=== PATIENT | male | born 1955 | race Caucasian/White ===

== ENCOUNTER 2018-09-04 09:04 | Emergency (ER) | payer MEDICARE, MEDICAID ==
[~2018-09-04] VITALS: Ht 185.4 cm; Wt 122.4 kg
[~2018-09-04 09:04] MED LIST: AMIO200T27 PO; APIX5TAB3 PO; ATOR10TA PO; BECL7.3A INH; CARV-50 PO; DIGO125T97 PO; FURO-150 PO; LISI2.5T2 PO; MAGN200T PO; POTA10TA36 PO
[2018-09-04 09:06] VITALS: BP 150/91
[2018-09-04] MEDS ORDERED: ketorolac tromethamine 15mg/ml inj. IM ONE (10:30)
[2018-09-04] MEDS ORDERED: orphenadrine citrate 60mg/2ml inj. IM ONE (10:30)
[2018-09-04] MEDS ORDERED: CYCL-1 PO (10:33)
[2018-09-04] MEDS ORDERED: ACET-2119 PO (10:33)
--- NOTE | 2018-09-04 10:47 | NUR ---
medication norflex out of stock in pharmacy. Pt and provider aware. Pt has rx for home.
== END 2018-09-04 10:53 | disposition home or self-care (01) ==
LOC: ER 09:05
DX: S39.012A Strain of muscle, fascia and tendon of lower back, initial encounter (principal); I11.0 Hypertensive heart disease with heart failure; I50.9 Heart failure, unspecified; I48.91 Unspecified atrial fibrillation; J44.9 Chronic obstructive pulmonary disease, unspecified; F10.10 Alcohol abuse, uncomplicated; X58.XXXA Exposure to other specified factors, initial encounter; Y93.89 Activity, other specified; Y92.89 Other specified places as the place of occurrence of the external cause; Y99.8 Other external cause status
CPT/HCPCS: 96372; 99283; J1885

== ENCOUNTER 2018-12-12 17:10 | Inpatient (IN) | payer MEDICARE, MEDICAID ==
[~2018-12-12 17:10] MED LIST changes: +CYCL-1 PO
== END 2018-12-31 12:34 | DRG 245 ==
LOC: ER 17:10 → CICU 2S 20:45
PROVIDERS: ADMIT Internal Medicine Critical Care Medicine; ATTEND Internal Medicine Critical Care Medicine
PROC: 5A1955Z Respiratory Ventilation, Greater than 96 Consecutive Hours (ICD-10-PCS; principal; 2018-12-12)
PROC: 0BH17EZ Insertion of Endotracheal Airway into Trachea, Via Natural or Artificial Opening (ICD-10-PCS; 2018-12-12)
PROC: 03HY32Z Insertion of Monitoring Device into Upper Artery, Percutaneous Approach (ICD-10-PCS; 2018-12-12)
PROC: 4A133B1 Monitoring of Arterial Pressure, Peripheral, Percutaneous Approach (ICD-10-PCS; 2018-12-12)
PROC: 4A1 Measurement and Monitoring, Physiological Systems, Monitoring (ICD-10-PCS; 2018-12-12)
PROC: 06HY33Z Insertion of Infusion Device into Lower Vein, Percutaneous Approach (ICD-10-PCS; 2018-12-12)
PROC: B54BZZA Ultrasonography of Right Lower Extremity Veins, Guidance (ICD-10-PCS; 2018-12-12)
PROC: 02HV33Z Insertion of Infusion Device into Superior Vena Cava, Percutaneous Approach (ICD-10-PCS; 2018-12-15)
PROC: B548ZZA Ultrasonography of Superior Vena Cava, Guidance (ICD-10-PCS; 2018-12-15)
PROC: 4A10X4Z Monitoring of Central Nervous Electrical Activity, External Approach (ICD-10-PCS; 2018-12-16)
PROC: B2111ZZ Fluoroscopy of Multiple Coronary Arteries using Low Osmolar Contrast (ICD-10-PCS; 2018-12-27)
PROC: B41F1ZZ Fluoroscopy of Right Lower Extremity Arteries using Low Osmolar Contrast (ICD-10-PCS; 2018-12-27)
PROC: B2151ZZ Fluoroscopy of Left Heart using Low Osmolar Contrast (ICD-10-PCS; 2018-12-27)
PROC: 4A023N7 Measurement of Cardiac Sampling and Pressure, Left Heart, Percutaneous Approach (ICD-10-PCS; 2018-12-27)
PROC: 0JH608Z Insertion of Defibrillator Generator into Chest Subcutaneous Tissue and Fascia, Open Approach (ICD-10-PCS; 2018-12-30)
PROC: 0JH60PZ Insertion of Cardiac Rhythm Related Device into Chest Subcutaneous Tissue and Fascia, Open Approach (ICD-10-PCS; 2018-12-30)
DX: I49.01 Ventricular fibrillation (principal); J81.0 Acute pulmonary edema; R57.0 Cardiogenic shock; J96.01 Acute respiratory failure with hypoxia; I50.22 Chronic systolic (congestive) heart failure; G93.40 Encephalopathy, unspecified; J98.11 Atelectasis; N17.9 Acute kidney failure, unspecified; I42.9 Cardiomyopathy, unspecified; Z91.19 Patient's noncompliance with other medical treatment and regimen; F10.10 Alcohol abuse, uncomplicated; Z60.2 Problems related to living alone; I45.10 Unspecified right bundle-branch block; R56.9 Unspecified convulsions; I48.0 Paroxysmal atrial fibrillation; J44.9 Chronic obstructive pulmonary disease, unspecified; I25.10 Atherosclerotic heart disease of native coronary artery without angina pectoris; E66.9 Obesity, unspecified; Z68.31 Body mass index [BMI] 31.0-31.9, adult; Z59.0 Homelessness; Z79.01 Long term (current) use of anticoagulants; Z87.891 Personal history of nicotine dependence; Z79.899 Other long term (current) drug therapy
CPT/HCPCS: 31500; 33249; 36415; 36556; 36600; 70450; 71045; 80048; 80053; 80061; 80076; 80162; 80305; 80320; 81001; 81003; 82150; 82330; 82550; 82553; 82803; 82948; 83605; 83615; 83690; 83735; 83874; 83880; 84100; 84134; 84145; 84439; 84443; 84484; 85018; 85025; 85610; 85730; 87040; 87070; 92508; 92616; 93005; 93308; 93458; 93926; 94002; 94003; 94640; 94760; 95816; 96374; 96375; 97110; 97116; 97161; 97530; 99152; 99153; 99291; A4565; A4620; A6257; A6449; C1760; C1769; C9113; G0378; J0131; J0153; J0171; J0282; J0690; J0692; J0780; J1160; J1250; J1644; J1650; J1940; J1953; J1956; J2001; J2020; J2060; J2250; J2704; J2765; J2930; J2997; J3010; J3411; J3480; J3490; J7030; J7060; Q9967

== ENCOUNTER 2019-07-28 14:39 | Inpatient (IN) | payer MEDICARE, MEDICAID ==
[~2019-07-28] VITALS: Ht 182.9 cm; Wt 115.1 kg
--- NOTE | 2019-07-28 14:54 | NUR ---
[employer] PACEMAKER INTERROGATION HAS BEEN INITIATED. AWAITING A CALL BACK FROM [employer] FOR AN ETA.
[2019-07-28] MEDS ORDERED: diltiazem 5mg/ml 5ml inj. IV ONE ×2 (14:55→15:30)
--- NOTE | 2019-07-28 14:55 | NUR ---
PT STATES HE HASNT TAKEN HIS MEDICATIONS IN THE LAST WEEK BECAUSE HIS FRIEND WOUNDNT GET IT FOR HIM.
[2019-07-28 15:10] LABS: BASOPHILS % (AUTO) 0.1 % (0-1); EOSINOPHILS % (AUTO) 0.4 % (0-6); HEMATOCRIT 43.8 % (42.0-52.0); HEMOGLOBIN 14.9 g/dl (14.0-17.9); LYMPHOCYTES # (AUTO) 1.1 X10'3 (1.1-4.8); LYMPHOCYTES % (AUTO) 10.1 % (21-51); MEAN CORPUSCULAR HEMOGLOBIN 31.8 PG (27.0-31.0); MEAN CORPUSCULAR HGB CONC 34.1 g/dL (33.0-36.5); MEAN CORPUSCULAR VOLUME 93.3 FL (78-98); MEAN PLATELET VOLUME 9.5 FL (7.4-10.4); MONOCYTES % (AUTO) 9.1 % (2-12); NEUTROPHILS % (AUTO) 80.3 % (42-75); PLATELET COUNT 197 X10'3 (140-440); RED BLOOD COUNT 4.69 X10'6 (4.70-6.10); RED CELL DISTRIBUTION WIDTH 14.6 % (11.5-14.5); WHITE BLOOD COUNT 11.2 X10'3 (4.5-11.0)
[2019-07-28 15:26] LABS: ALANINE AMINOTRANSFERASE 41 U/L (12-78); ALBUMIN 3.7 G/DL (3.4-5.0); ALBUMIN/GLOBULIN RATIO 1.1 (1.1-1.5); ALKALINE PHOSPHATASE 104 IU/L (46-116); ANION GAP 9 (8-16); ASPARTATE AMINO TRANSFERASE 40 U/L (10-37); BILIRUBIN,TOTAL 0.7 MG/DL (0.1-1.0); BLOOD UREA NITROGEN 8 MG/DL (7-18); BUN/CREATININE RATIO 7.9 (5.4-32.0); CALCIUM 8.9 MG/DL (8.5-10.1); CHLORIDE 101 MMOL/L (99-107); CREATININE 1.01 MG/DL (0.60-1.10); GLUCOSE 90 MG/DL (70-104); POTASSIUM 4.2 MMOL/L (3.5-5.1); SODIUM 138 MMOL/L (135-145); TOTAL CARBON DIOXIDE 28.1 MMOL/L (24-32); TOTAL PROTEIN 7.1 G/DL (6.4-8.2); eGFR 74 ML/MIN
[2019-07-28] MEDS ORDERED: ATOR20TA66 PO (15:28)
[2019-07-28] MEDS ORDERED: CITA20TA27 PO (15:28)
[2019-07-28] MEDS ORDERED: LISI-604 PO (15:28)
[2019-07-28] MEDS ORDERED: FLUT100D PO (15:31)
[2019-07-28] MEDS ORDERED: RIVA20TA PO (15:31)
[2019-07-28] MEDS ORDERED: FOLI0.8T PO (15:31)
[2019-07-28] MEDS ORDERED: LAN0.125T PO (15:31)
[2019-07-28] MEDS ORDERED: CARV3.1244 PO (15:33)
[2019-07-28] MEDS ORDERED: AMIO100T4 PO (15:33)
[2019-07-28] MEDS ORDERED: FURO20TA4 PO (15:33)
[2019-07-28 15:34] LABS: MAGNESIUM 1.7 MG/DL (1.5-2.4)
[2019-07-28] MEDS ORDERED: ALBU18HF2 INH (15:35)
[2019-07-28 15:38] LABS: URINE AMPHETAMINE SCREEN NEGATIVE (Neg); URINE BARBITUATE SCREEN NEGATIVE (Neg); URINE BENZODIAZEPINES SCREEN NEGATIVE (Neg); URINE CANNABINOID SCREEN NEGATIVE (Neg); URINE COCAINE SCREEN NEGATIVE (Neg); URINE METHADONE SCREEN NEGATIVE (Neg); URINE OPIATE SCREEN POSITIVE (Neg); URINE PHENCYCLIDINE SCREEN NEGATIVE (Neg)
[2019-07-28 15:55] LABS: ETHANOL < 0.010 GM/DL (0.0-0.010)
[2019-07-28] MEDS ORDERED: magnesium 4gm in 100ml NS 100 ML IV PRN (17:20)
[2019-07-28] MEDS ORDERED: potassium Cl 20 mEq SR tablet PO PRN ×2 (17:20)
[2019-07-28] MEDS ORDERED: ipratropium/albuterol 3ml nebule NEB PRN (17:20)
[2019-07-28] MEDS ORDERED: ondansetron/PF 4mg/2ml inj IV PRN (17:20)
[2019-07-28] MEDS ORDERED: magnesium 2GM in 50ml NS 50 ML IV PRN (17:20)
[2019-07-28] MEDS ORDERED: thiamine inj. 100 MG in normal saline 100ml IV soln 100 ML IV ONE (17:20)
[2019-07-28] MEDS ORDERED: potassium CL 10mEq/100ml bag 100 ML IV PRN ×2 (17:20)
[2019-07-28] MEDS ORDERED: LORazepam 2 mg/ml vial IV PRN ×2 (17:20)
[2019-07-28] MEDS ORDERED: haloperidol lactate 5mg/ml inj IM PRN (17:20)
[2019-07-28] MEDS: nicotine 21mg patch - 24 hr TD SCH (18:07)
[2019-07-28] MEDS: rivaroxaban 20mg tablet PO SCH (18:09)
[2019-07-28] MEDS: amiodarone 100mg tablet PO SCH (18:09)
[2019-07-28] MEDS: digoxin 125mcg (0.125mg) tablet PO SCH (18:09)
[2019-07-28] MEDS ORDERED: FLU VACC QS2019-20 36MOS UP/PF 60 MCG/0.5 ML SYRINGE IMVAC ONE (18:25)
--- NOTE | 2019-07-28 18:45 | NUR ---
Patient in room MED 317. I have received report from Jayson LOZADA and had the opportunity to ask questions and assume patient care.
[2019-07-28 19:00] VITALS: BP 129/76
[2019-07-28] MEDS: K and/or MAG REPLACEMENT MC SCH (20:00)
--- NOTE | 2019-07-28 20:00 | NUR ---
Pt says his left chest feels bruised where his internal defib is located, he thinks because it shocked him 7 times today Addendum: 07/29/19 at 0503 by Ngozi Farley RN Amended: Links added.
[2019-07-28 22:00] VITALS: BP 136/88
[2019-07-28] MEDS: docusate sod 100mg capsule PO SCH (22:03)
[2019-07-28] MEDS: atorvastatin 20mg tablet PO SCH (22:03)
[2019-07-28] MEDS: carVEDilol 3.125mg tablet PO SCH (22:03)
[2019-07-28] MEDS: acetaminophen 325mg tablet PO PRN (22:05)
--- NOTE | 2019-07-28 23:04 | NUR ---
PAGER ID: [phone] MESSAGE: [phone] pt Luís currently AFIB RVR in the 160s, just had 5 beat run of VTACH. Had two Cardizem pushes in the ER and PO Digoxin. Has PO Amio 100 mg/day and PO Digoxin 125 mcg/day scheduled for tomorrow. Please advise - ACCE [id number]
[2019-07-28] MEDS: diltiazem 5mg/ml 5ml inj. IV PRN (23:32)
--- NOTE | 2019-07-29 00:45 | NUR ---
CHECKING PTS GLUCOSE LEVELS DUE TO HIM STATING HE DRINKS EVERYDAY. CHECKED PTS BS AT 2200 AND IT WAS 91, CHECKED IT AGAIN AT 0030 AND IT WAS 109.
[2019-07-29 02:00] VITALS: BP 122/83
[2019-07-29 04:05] LABS: BASOPHILS # (AUTO) 0.1 X10'3 (0-0.2); BASOPHILS % (AUTO) 1.5 % (0-1); EOSINOPHILS # (AUTO) 0.3 X10'3 (0-0.9); EOSINOPHILS % (AUTO) 3.1 % (0-6); HEMATOCRIT 39.1 % (42.0-52.0); HEMOGLOBIN 13.4 g/dl (14.0-17.9); LYMPHOCYTES % (AUTO) 23.7 % (21-51); MEAN CORPUSCULAR HEMOGLOBIN 32.1 PG (27.0-31.0); MEAN CORPUSCULAR HGB CONC 34.3 g/dL (33.0-36.5); MEAN CORPUSCULAR VOLUME 93.7 FL (78-98); MEAN PLATELET VOLUME 9.6 FL (7.4-10.4); MONOCYTES # (AUTO) 0.9 X10'3 (0-0.9); MONOCYTES % (AUTO) 10.8 % (2-12); NEUTROPHILS # (AUTO) 5.1 X10'3 (1.8-7.7); NEUTROPHILS % (AUTO) 60.9 % (42-75); PLATELET COUNT 172 X10'3 (140-440); RED BLOOD COUNT 4.17 X10'6 (4.70-6.10); RED CELL DISTRIBUTION WIDTH 14.8 % (11.5-14.5); WHITE BLOOD COUNT 8.4 X10'3 (4.5-11.0)
[2019-07-29 04:20] LABS: ALANINE AMINOTRANSFERASE 33 U/L (12-78); ALKALINE PHOSPHATASE 93 IU/L (46-116); AMYLASE 45 U/L (25-115); ANION GAP 6 (8-16); ASPARTATE AMINO TRANSFERASE 31 U/L (10-37); BILIRUBIN,TOTAL 0.6 MG/DL (0.1-1.0); BLOOD UREA NITROGEN 11 MG/DL (7-18); BUN/CREATININE RATIO 12.2 (5.4-32.0); CALCIUM 8.7 MG/DL (8.5-10.1); CHLORIDE 104 MMOL/L (99-107); CHOLESTEROL 102 MG/DL (0-200); GLUCOSE 103 MG/DL (70-104); HDL CHOLESTEROL 50 MG/DL (35-60); LDL CHOLESTEROL 39 MG/DL (50-100); PHOSPHORUS 3.9 MG/DL (2.3-4.5); POTASSIUM 3.6 MMOL/L (3.5-5.1); SODIUM 139 MMOL/L (135-145); TOTAL CARBON DIOXIDE 29.5 MMOL/L (24-32); TRIGLYCERIDES 79 MG/DL (20-135); eGFR 85 ML/MIN
[2019-07-29 04:21] LABS: LIPASE 108 U/L (73-393)
--- NOTE | 2019-07-29 06:00 | NUR ---
Problems reprioritized. Patient report given, questions answered & plan of care reviewed with PAT RN.
[2019-07-29 07:00] VITALS: BP 121/85
[2019-07-29] MEDS: docusate sod 100mg capsule PO SCH ×2 (07:56→22:13)
[2019-07-29] MEDS: lisinopril 5mg tablet PO SCH (07:57)
[2019-07-29] MEDS: citalopram 20mg tablet PO SCH (07:58)
[2019-07-29] MEDS: carVEDilol 3.125mg tablet PO SCH ×2 (07:59→22:13)
[2019-07-29] MEDS: K and/or MAG REPLACEMENT MC SCH ×2 (08:00→20:00)
[2019-07-29] MEDS: furosemide 20MG tablet PO SCH (08:00)
[2019-07-29] MEDS: folic acid 1mg tablet PO SCH (08:00)
[2019-07-29] MEDS: rivaroxaban 20mg tablet PO SCH (08:00)
[2019-07-29] MEDS: digoxin 125mcg (0.125mg) tablet PO SCH (08:01)
[2019-07-29] MEDS: thiamine inj. 100 MG, folic acid inj. 2 MG in normal saline 100ml IV soln 100.0 ML IV SCH (08:03)
[2019-07-29] MEDS: nicotine 21mg patch - 24 hr TD SCH (08:06)
[2019-07-29] MEDS ORDERED: pneumococcal 23-VAL P-sac vacc 25 mcg/0.5ml vial IMVAC ONE (10:00)
[2019-07-29] MEDS: amiodarone 100mg tablet PO SCH (10:13)
[2019-07-29 11:00] VITALS: BP 127/81
[2019-07-29 15:00] VITALS: BP 127/87
[2019-07-29] MEDS: MVI, adult No.4 with vit. K 10 ML in dextrose 5% water 500ml 500 ML IV SCH ×2 (15:48)
[2019-07-29 18:00] VITALS: BP 139/92
--- NOTE | 2019-07-29 18:00 | NUR ---
Patient in room MED 317. I have received report from ROLAND LOZADA and had the opportunity to ask questions and assume patient care.
[2019-07-29 22:00] VITALS: BP 119/65
--- NOTE | 2019-07-29 22:10 | NUR ---
Pts glucose was 96
[2019-07-29] MEDS: atorvastatin 20mg tablet PO SCH (22:13)
[2019-07-29] MEDS: acetaminophen 325mg tablet PO PRN (22:22)
--- NOTE | 2019-07-29 23:11 | NUR ---
Talked to Preet about pts occasional HR of up to 140 and she asked what the HR was right then, that if it was 140 right then she would treat it, but it was 102 so there were no new orders given. She also deferred the possible chemosis or scleredema to day doc, but she did place an order of a one time dose for ultram 50 mg PO for pts 8/10 chronic back pain and right leg ache.
[2019-07-29] MEDS ORDERED: traMADol 50MG tablet PO PRN (23:20)
[2019-07-30 02:00] VITALS: BP 103/79
[2019-07-30 05:35] LABS: BASOPHILS # (AUTO) 0.1 X10'3 (0-0.2); BASOPHILS % (AUTO) 0.8 % (0-1); EOSINOPHILS # (AUTO) 0.4 X10'3 (0-0.9); EOSINOPHILS % (AUTO) 4.7 % (0-6); HEMATOCRIT 41.4 % (42.0-52.0); HEMOGLOBIN 13.9 g/dl (14.0-17.9); LYMPHOCYTES # (AUTO) 1.6 X10'3 (1.1-4.8); MEAN CORPUSCULAR HEMOGLOBIN 32.1 PG (27.0-31.0); MEAN CORPUSCULAR HGB CONC 33.5 g/dL (33.0-36.5); MEAN CORPUSCULAR VOLUME 95.6 FL (78-98); MEAN PLATELET VOLUME 9.6 FL (7.4-10.4); MONOCYTES # (AUTO) 0.7 X10'3 (0-0.9); MONOCYTES % (AUTO) 7.9 % (2-12); NEUTROPHILS # (AUTO) 5.8 X10'3 (1.8-7.7); NEUTROPHILS % (AUTO) 67.6 % (42-75); PLATELET COUNT 153 X10'3 (140-440); RED BLOOD COUNT 4.33 X10'6 (4.70-6.10); RED CELL DISTRIBUTION WIDTH 14.7 % (11.5-14.5); WHITE BLOOD COUNT 8.6 X10'3 (4.5-11.0)
[2019-07-30 05:51] LABS: ALANINE AMINOTRANSFERASE 30 U/L (12-78); ALBUMIN 3.1 G/DL (3.4-5.0); ALKALINE PHOSPHATASE 90 IU/L (46-116); AMYLASE 52 U/L (25-115); ANION GAP 6 (8-16); ASPARTATE AMINO TRANSFERASE 25 U/L (10-37); BILIRUBIN,TOTAL 0.6 MG/DL (0.1-1.0); BLOOD UREA NITROGEN 10 MG/DL (7-18); BUN/CREATININE RATIO 11.4 (5.4-32.0); CALCIUM 8.7 MG/DL (8.5-10.1); CHLORIDE 105 MMOL/L (99-107); CREATININE 0.88 MG/DL (0.60-1.10); GLUCOSE 96 MG/DL (70-104); LIPASE 108 U/L (73-393); MAGNESIUM 1.9 MG/DL (1.5-2.4); PHOSPHORUS 3.7 MG/DL (2.3-4.5); POTASSIUM 3.6 MMOL/L (3.5-5.1); SODIUM 141 MMOL/L (135-145); TOTAL CARBON DIOXIDE 30.3 MMOL/L (24-32); TOTAL PROTEIN 6.2 G/DL (6.4-8.2); eGFR 87 ML/MIN
--- NOTE | 2019-07-30 06:28 | NUR ---
Problems reprioritized. Patient report given, questions answered & plan of care reviewed with Angie LOZADA.
[2019-07-30 06:30] VITALS: BP 133/91
--- NOTE | 2019-07-30 06:45 | NUR ---
Patient in room MED 317. I have received report from Martha LOZADA and had the opportunity to ask questions and assume patient care. Addendum: 07/30/19 at 1829 by Angie Arana RN CORRECTION--REPORTED OFF TO ROBIN LOZADA, not Martha LOZADA.
[2019-07-30] MEDS: K and/or MAG REPLACEMENT MC SCH ×2 (08:00→20:00)
[2019-07-30] MEDS: rivaroxaban 20mg tablet PO SCH (08:33)
[2019-07-30] MEDS: folic acid 1mg tablet PO SCH (08:33)
[2019-07-30] MEDS: docusate sod 100mg capsule PO SCH ×2 (08:33→19:55)
[2019-07-30] MEDS: nicotine 21mg patch - 24 hr TD SCH (08:33)
[2019-07-30] MEDS: carVEDilol 3.125mg tablet PO SCH ×2 (08:33→19:56)
[2019-07-30] MEDS: lisinopril 5mg tablet PO SCH (08:33)
[2019-07-30] MEDS: digoxin 125mcg (0.125mg) tablet PO SCH (08:34)
[2019-07-30] MEDS: furosemide 20MG tablet PO SCH (08:34)
[2019-07-30] MEDS: citalopram 20mg tablet PO SCH (08:35)
[2019-07-30] MEDS: amiodarone 100mg tablet PO SCH (08:35)
[2019-07-30] MEDS: thiamine inj. 100 MG, folic acid inj. 2 MG in normal saline 100ml IV soln 100.0 ML IV SCH (08:35)
[2019-07-30] MEDS: MVI, adult No.4 with vit. K 10 ML in dextrose 5% water 500ml 500 ML IV SCH ×2 (08:45)
[2019-07-30 11:30] VITALS: BP 135/94
[2019-07-30 15:00] VITALS: BP 97/74
[2019-07-30 18:00] VITALS: BP 136/97
--- NOTE | 2019-07-30 18:00 | NUR ---
Patient in room MED 317. I have received report from MARGARETTE LOZADA and had the opportunity to ask questions and assume patient care.
--- NOTE | 2019-07-30 18:29 | NUR ---
Problems reprioritized. Patient report given, questions answered & plan of care reviewed with ROBIN LOZADA. Addendum: 07/30/19 at 1830 by Angie Arana RN CORRECTION- REPORTED OFF TO CARROLL LOZADA not ROBIN LOZADA.
[2019-07-30] MEDS ORDERED: amiodarone 200mg tablet PO ONE (19:35)
--- NOTE | 2019-07-30 19:36 | NUR ---
Called Katty regarding pts HR up to 170s, he ordered 100 mg amiodarone PO one time give.
[2019-07-30] MEDS: acetaminophen 325mg tablet PO PRN (19:54)
[2019-07-30] MEDS: atorvastatin 20mg tablet PO SCH (19:55)
[2019-07-30 22:00] VITALS: BP 130/88
[2019-07-31] VITALS (7 sets, daily range): BP systolic 105–140; BP diastolic 75–98
--- NOTE | 2019-07-31 | NUR ---
SPOKE TO ARTI ABOUT PTS CHRONIC BACK PAIN THAT HE RATES AN 8/10 AND ARTI ORDERED "NORCO 5 1 Q4"
[2019-07-31] MEDS: HYDROcodone/acetaminophen 5mg/325mg tablet PO PRN (02:47)
--- NOTE | 2019-07-31 06:00 | NUR ---
Problems reprioritized. Patient report given, questions answered & plan of care reviewed with Angie LOZADA.
--- NOTE | 2019-07-31 06:15 | NUR ---
Patient in room MED 317. I have received report from Martha LOZADA and had the opportunity to ask questions and assume patient care.
[2019-07-31 06:21] LABS: ANION GAP 6 (8-16); BILIRUBIN,TOTAL 0.5 MG/DL (0.1-1.0); BLOOD UREA NITROGEN 11 MG/DL (7-18); CALCIUM 8.6 MG/DL (8.5-10.1); CHLORIDE 105 MMOL/L (99-107); CREATININE 0.92 MG/DL (0.60-1.10); GLUCOSE 125 MG/DL (70-104); MAGNESIUM 1.9 MG/DL (1.5-2.4); PHOSPHORUS 3.2 MG/DL (2.3-4.5); POTASSIUM 3.5 MMOL/L (3.5-5.1); SODIUM 142 MMOL/L (135-145); TOTAL CARBON DIOXIDE 31.3 MMOL/L (24-32); TOTAL PROTEIN 6.3 G/DL (6.4-8.2); eGFR 83 ML/MIN
[2019-07-31 06:22] LABS: ALANINE AMINOTRANSFERASE 28 U/L (12-78); ALBUMIN/GLOBULIN RATIO 0.9 (1.1-1.5); ALKALINE PHOSPHATASE 88 IU/L (46-116); AMYLASE 54 U/L (25-115); ASPARTATE AMINO TRANSFERASE 20 U/L (10-37); LIPASE 112 U/L (73-393)
[2019-07-31 06:26] LABS: BASOPHILS % (AUTO) 0.4 % (0-1); EOSINOPHILS # (AUTO) 0.4 X10'3 (0-0.9); EOSINOPHILS % (AUTO) 4.6 % (0-6); HEMOGLOBIN 14.2 g/dl (14.0-17.9); LYMPHOCYTES # (AUTO) 2.1 X10'3 (1.1-4.8); LYMPHOCYTES % (AUTO) 22.1 % (21-51); MEAN CORPUSCULAR HGB CONC 33.7 g/dL (33.0-36.5); MEAN PLATELET VOLUME 9.8 FL (7.4-10.4); MONOCYTES # (AUTO) 0.8 X10'3 (0-0.9); MONOCYTES % (AUTO) 8.8 % (2-12); NEUTROPHILS % (AUTO) 64.1 % (42-75); PLATELET COUNT 160 X10'3 (140-440); RED BLOOD COUNT 4.42 X10'6 (4.70-6.10); WHITE BLOOD COUNT 9.3 X10'3 (4.5-11.0)
--- NOTE | 2019-07-31 07:51 | NUR ---
PT. TACHYCARDIC WITH AFIB NURSING AWARE. Addendum: 07/31/19 at 0752 by Elan Gleason RT Amended: Links added.
[2019-07-31] MEDS: K and/or MAG REPLACEMENT MC SCH ×2 (08:00→19:23)
[2019-07-31] MEDS: thiamine 100mg tablet PO SCH ×2 (08:07→19:24)
[2019-07-31] MEDS: folic acid 1mg tablet PO SCH (08:07)
[2019-07-31] MEDS: citalopram 20mg tablet PO SCH (08:07)
[2019-07-31] MEDS: carVEDilol 3.125mg tablet PO SCH ×2 (08:07→19:24)
[2019-07-31] MEDS: rivaroxaban 20mg tablet PO SCH (08:08)
[2019-07-31] MEDS: lisinopril 5mg tablet PO SCH (08:08)
[2019-07-31] MEDS: furosemide 20MG tablet PO SCH (08:08)
[2019-07-31] MEDS: docusate sod 100mg capsule PO SCH ×2 (08:08→19:24)
[2019-07-31] MEDS: MVI, adult No.4 with vit. K 10 ML in dextrose 5% water 500ml 500 ML IV SCH ×2 (08:08)
[2019-07-31] MEDS: digoxin 125mcg (0.125mg) tablet PO SCH (08:08)
[2019-07-31] MEDS: amiodarone 100mg tablet PO SCH (08:08)
[2019-07-31] MEDS: nicotine 21mg patch - 24 hr TD SCH (08:09)
[2019-07-31] MEDS: acetaminophen 325mg tablet PO PRN ×2 (13:17→19:24)
--- NOTE | 2019-07-31 18:25 | NUR ---
Problems reprioritized. Patient report given, questions answered & plan of care reviewed with Guilherme LOZADA.
[2019-07-31] MEDS: atorvastatin 20mg tablet PO SCH (20:18)
[2019-08-01 02:30] VITALS: BP 128/84
[2019-08-01 02:56] LABS: BASOPHILS # (AUTO) 0.1 X10'3 (0-0.2); EOSINOPHILS # (AUTO) 0.4 X10'3 (0-0.9); EOSINOPHILS % (AUTO) 4.8 % (0-6); MEAN CORPUSCULAR HEMOGLOBIN 32.5 PG (27.0-31.0); PLATELET COUNT 156 X10'3 (140-440)
[2019-08-01 02:58] LABS: BASOPHILS % (AUTO) 1.8 % (0-1); HEMATOCRIT 42.5 % (42.0-52.0); HEMOGLOBIN 14.5 g/dl (14.0-17.9); LYMPHOCYTES # (AUTO) 2.5 X10'3 (1.1-4.8); LYMPHOCYTES % (AUTO) 29.7 % (21-51); MEAN CORPUSCULAR HGB CONC 34.2 g/dL (33.0-36.5); MEAN CORPUSCULAR VOLUME 95.1 FL (78-98); MEAN PLATELET VOLUME 9.5 FL (7.4-10.4); MONOCYTES # (AUTO) 0.8 X10'3 (0-0.9); MONOCYTES % (AUTO) 9.8 % (2-12); NEUTROPHILS # (AUTO) 4.5 X10'3 (1.8-7.7); NEUTROPHILS % (AUTO) 53.9 % (42-75); RED BLOOD COUNT 4.47 X10'6 (4.70-6.10); RED CELL DISTRIBUTION WIDTH 14.9 % (11.5-14.5); WHITE BLOOD COUNT 8.4 X10'3 (4.5-11.0)
[2019-08-01 03:21] LABS: ANION GAP 4 (8-16); BILIRUBIN,TOTAL 0.5 MG/DL (0.1-1.0); BLOOD UREA NITROGEN 13 MG/DL (7-18); BUN/CREATININE RATIO 13.4 (5.4-32.0); CALCIUM 8.7 MG/DL (8.5-10.1); CHLORIDE 106 MMOL/L (99-107); CREATININE 0.97 MG/DL (0.60-1.10); GLUCOSE 96 MG/DL (70-104); MAGNESIUM 2.1 MG/DL (1.5-2.4); PHOSPHORUS 3.7 MG/DL (2.3-4.5); POTASSIUM 3.8 MMOL/L (3.5-5.1); SODIUM 141 MMOL/L (135-145); TOTAL CARBON DIOXIDE 31.5 MMOL/L (24-32); eGFR 78 ML/MIN
[2019-08-01 03:22] LABS: ALANINE AMINOTRANSFERASE 30 U/L (12-78); ALBUMIN 3.2 G/DL (3.4-5.0); ALKALINE PHOSPHATASE 91 IU/L (46-116); AMYLASE 57 U/L (25-115); ASPARTATE AMINO TRANSFERASE 18 U/L (10-37); LIPASE 117 U/L (73-393); TOTAL PROTEIN 6.5 G/DL (6.4-8.2)
[2019-08-01 06:00] VITALS: BP 120/92
--- NOTE | 2019-08-01 06:18 | NUR ---
Problems reprioritized. Patient report given, questions answered & plan of care reviewed with Josh Carias. no distress noted.
[2019-08-01] MEDS: K and/or MAG REPLACEMENT MC SCH ×2 (08:00→20:00)
[2019-08-01] MEDS: diltiazem 5mg/ml 5ml inj. IV PRN (08:12)
[2019-08-01] MEDS: rivaroxaban 20mg tablet PO SCH (08:27)
[2019-08-01] MEDS: digoxin 125mcg (0.125mg) tablet PO SCH (08:27)
[2019-08-01] MEDS: citalopram 20mg tablet PO SCH (08:27)
[2019-08-01] MEDS: amiodarone 100mg tablet PO SCH (08:27)
[2019-08-01] MEDS: lisinopril 5mg tablet PO SCH (08:27)
[2019-08-01] MEDS: docusate sod 100mg capsule PO SCH ×2 (08:27→21:05)
[2019-08-01] MEDS: MVI, adult No.4 with vit. K 10 ML in dextrose 5% water 500ml 500 ML IV SCH ×2 (08:27)
[2019-08-01] MEDS: folic acid 1mg tablet PO SCH (08:27)
[2019-08-01] MEDS: thiamine 100mg tablet PO SCH ×2 (08:27→21:05)
[2019-08-01] MEDS: nicotine 21mg patch - 24 hr TD SCH (08:29)
[2019-08-01] MEDS: carVEDilol 3.125mg tablet PO SCH ×2 (08:29→21:05)
[2019-08-01] MEDS: furosemide 20MG tablet PO SCH (08:29)
[2019-08-01] MEDS: HYDROcodone/acetaminophen 5mg/325mg tablet PO PRN ×2 (08:29→16:04)
[2019-08-01 11:00] VITALS: BP 125/71
[2019-08-01] MEDS ORDERED: carVEDilol 3.125mg tablet PO ONE (12:00)
--- NOTE | 2019-08-01 12:10 | NUR ---
Patient in room MED 317. I have received report from NEVILLE Moreno and had the opportunity to ask questions and assume patient care.
--- NOTE | 2019-08-01 13:07 | NUR ---
Initial: Pt admit w/ afib RVR, type 2 TN, hx medical noncompliance per MD note. PO 100% heart healthy diet meeting needs. LBM 07/31 receiving colace. No nutrition concerns at this time. Will continue to monitor. Rec: 1. continue heart healthy diet 2. routine bowel care 3. wt per rx Addendum: 08/01/19 at [address] Amended: Links added.
[2019-08-01 15:00] VITALS: BP 124/87
--- NOTE | 2019-08-01 18:20 | NUR ---
Problems reprioritized. Patient report given, questions answered & plan of care reviewed with NEVILLE Vanegas.
[2019-08-01 18:53] VITALS: BP 143/92
[2019-08-01] MEDS: atorvastatin 20mg tablet PO SCH (21:05)
[2019-08-01] MEDS: amiodarone 200mg tablet PO SCH (21:06)
[2019-08-01 22:00] VITALS: BP 129/91
[2019-08-02 02:15] VITALS: BP 128/86
[2019-08-02 02:40] LABS: BASOPHILS # (AUTO) 0.1 X10'3 (0-0.2); BASOPHILS % (AUTO) 1.2 % (0-1); CHLORIDE 106 MMOL/L (99-107); EOSINOPHILS # (AUTO) 0.4 X10'3 (0-0.9); EOSINOPHILS % (AUTO) 4.4 % (0-6); GLUCOSE 91 MG/DL (70-104); HEMATOCRIT 43.3 % (42.0-52.0); HEMOGLOBIN 14.6 g/dl (14.0-17.9); LYMPHOCYTES # (AUTO) 2.4 X10'3 (1.1-4.8); LYMPHOCYTES % (AUTO) 25.4 % (21-51); MEAN CORPUSCULAR HEMOGLOBIN 31.8 PG (27.0-31.0); MEAN CORPUSCULAR HGB CONC 33.7 g/dL (33.0-36.5); MEAN CORPUSCULAR VOLUME 94.5 FL (78-98); MEAN PLATELET VOLUME 9.9 FL (7.4-10.4); MONOCYTES # (AUTO) 0.9 X10'3 (0-0.9); MONOCYTES % (AUTO) 9.4 % (2-12); NEUTROPHILS # (AUTO) 5.7 X10'3 (1.8-7.7); NEUTROPHILS % (AUTO) 59.6 % (42-75); PLATELET COUNT 159 X10'3 (140-440); POTASSIUM 3.9 MMOL/L (3.5-5.1); RED BLOOD COUNT 4.58 X10'6 (4.70-6.10); RED CELL DISTRIBUTION WIDTH 15.1 % (11.5-14.5); SODIUM 141 MMOL/L (135-145); TOTAL CARBON DIOXIDE 31.9 MMOL/L (24-32); WHITE BLOOD COUNT 9.5 X10'3 (4.5-11.0)
[2019-08-02 02:41] LABS: ALANINE AMINOTRANSFERASE 28 U/L (12-78); ALBUMIN 3.3 G/DL (3.4-5.0); ALKALINE PHOSPHATASE 86 IU/L (46-116); AMYLASE 57 U/L (25-115); ANION GAP 3 (8-16); ASPARTATE AMINO TRANSFERASE 19 U/L (10-37); BILIRUBIN,TOTAL 0.5 MG/DL (0.1-1.0); BLOOD UREA NITROGEN 13 MG/DL (7-18); BUN/CREATININE RATIO 12.4 (5.4-32.0); CALCIUM 8.9 MG/DL (8.5-10.1); CREATININE 1.05 MG/DL (0.60-1.10); LIPASE 99 U/L (73-393); MAGNESIUM 2.1 MG/DL (1.5-2.4); PHOSPHORUS 3.7 MG/DL (2.3-4.5); TOTAL PROTEIN 6.5 G/DL (6.4-8.2); eGFR 71 ML/MIN
--- NOTE | 2019-08-02 06:15 | NUR ---
Patient in room MED 313. I have received report from NEVILLE Vanegas and had the opportunity to ask questions and assume patient care.
[2019-08-02 06:22] VITALS: BP 124/74
--- NOTE | 2019-08-02 06:22 | NUR ---
Problems reprioritized. Patient report given, questions answered & plan of care reviewed with Veronika LOZADA.
[2019-08-02] MEDS: MVI, adult No.4 with vit. K 10 ML in dextrose 5% water 500ml 500 ML IV SCH ×2 (07:54)
[2019-08-02] MEDS: thiamine 100mg tablet PO SCH ×2 (07:56→20:47)
[2019-08-02] MEDS: citalopram 20mg tablet PO SCH (07:56)
[2019-08-02] MEDS: digoxin 125mcg (0.125mg) tablet PO SCH (07:57)
[2019-08-02] MEDS: amiodarone 200mg tablet PO SCH ×2 (07:59→20:48)
[2019-08-02] MEDS: docusate sod 100mg capsule PO SCH ×2 (08:00→20:47)
[2019-08-02] MEDS: K and/or MAG REPLACEMENT MC SCH ×2 (08:00→20:00)
[2019-08-02] MEDS: lisinopril 5mg tablet PO SCH (08:02)
[2019-08-02] MEDS: rivaroxaban 20mg tablet PO SCH (08:02)
[2019-08-02] MEDS: nicotine 21mg patch - 24 hr TD SCH (08:03)
[2019-08-02] MEDS: carVEDilol 3.125mg tablet PO SCH ×2 (08:04→20:47)
[2019-08-02] MEDS: furosemide 20MG tablet PO SCH (08:05)
[2019-08-02] MEDS: folic acid 1mg tablet PO SCH (08:05)
[2019-08-02 11:00] VITALS: BP 115/76
[2019-08-02 15:00] VITALS: BP 98/77
[2019-08-02] MEDS: HYDROcodone/acetaminophen 5mg/325mg tablet PO PRN ×2 (16:40→20:57)
[2019-08-02 18:00] VITALS: BP 151/87
--- NOTE | 2019-08-02 18:30 | NUR ---
Problems reprioritized. Patient report given, questions answered & plan of care reviewed with NEVILLE Mead.
--- NOTE | 2019-08-02 18:30 | NUR ---
Patient in room MED 313. I have received report from NEVILLE Hair and had the opportunity to ask questions and assume patient care.
[2019-08-02] MEDS: atorvastatin 20mg tablet PO SCH (20:47)
[2019-08-02 22:00] VITALS: BP 118/85
[2019-08-03] MEDS: HYDROcodone/acetaminophen 5mg/325mg tablet PO PRN (01:41)
[2019-08-03 02:00] VITALS: BP 116/73
[2019-08-03 02:20] LABS: MAGNESIUM 2.2 MG/DL (1.5-2.4)
[2019-08-03 03:07] LABS: BASOPHILS # (AUTO) 0.1 X10'3 (0-0.2); EOSINOPHILS # (AUTO) 0.4 X10'3 (0-0.9); EOSINOPHILS % (AUTO) 4.4 % (0-6); HEMATOCRIT 44.1 % (42.0-52.0); HEMOGLOBIN 14.9 g/dl (14.0-17.9); LYMPHOCYTES # (AUTO) 2.6 X10'3 (1.1-4.8); MEAN CORPUSCULAR HGB CONC 33.8 g/dL (33.0-36.5); MEAN CORPUSCULAR VOLUME 94.5 FL (78-98); MEAN PLATELET VOLUME 10.4 FL (7.4-10.4); MONOCYTES % (AUTO) 11.1 % (2-12); NEUTROPHILS # (AUTO) 4.6 X10'3 (1.8-7.7); NEUTROPHILS % (AUTO) 53.5 % (42-75); PLATELET COUNT 169 X10'3 (140-440); RED BLOOD COUNT 4.67 X10'6 (4.70-6.10); RED CELL DISTRIBUTION WIDTH 14.8 % (11.5-14.5); WHITE BLOOD COUNT 8.6 X10'3 (4.5-11.0)
[2019-08-03 03:16] LABS: ALANINE AMINOTRANSFERASE 32 U/L (12-78); ALBUMIN 3.2 G/DL (3.4-5.0); ALBUMIN/GLOBULIN RATIO 0.9 (1.1-1.5); ALKALINE PHOSPHATASE 93 IU/L (46-116); ANION GAP 8 (8-16); ASPARTATE AMINO TRANSFERASE 21 U/L (10-37); BILIRUBIN,TOTAL 0.4 MG/DL (0.1-1.0); BLOOD UREA NITROGEN 14 MG/DL (7-18); BUN/CREATININE RATIO 13.9 (5.4-32.0); CALCIUM 8.6 MG/DL (8.5-10.1); CHLORIDE 105 MMOL/L (99-107); CREATININE 1.01 MG/DL (0.60-1.10); GLUCOSE 88 MG/DL (70-104); POTASSIUM 4.1 MMOL/L (3.5-5.1); SODIUM 142 MMOL/L (135-145); TOTAL CARBON DIOXIDE 28.9 MMOL/L (24-32); TOTAL PROTEIN 6.7 G/DL (6.4-8.2); eGFR 74 ML/MIN
[2019-08-03 06:00] VITALS: BP 110/73
--- NOTE | 2019-08-03 06:00 | NUR ---
Patient in room MED 313. I have received report from NEVILLE Cuevas and had the opportunity to ask questions and assume patient care.
--- NOTE | 2019-08-03 06:31 | NUR ---
Problems reprioritized. Patient report given, questions answered & plan of care reviewed with NEVILLE Wren.
[2019-08-03] MEDS ORDERED: lisinopril 2.5mg tablet PO SCH (07:51)
[2019-08-03] MEDS: carVEDilol 3.125mg tablet PO SCH (09:41)
[2019-08-03] MEDS: folic acid 1mg tablet PO SCH (09:42)
[2019-08-03] MEDS: digoxin 125mcg (0.125mg) tablet PO SCH (09:43)
[2019-08-03] MEDS: furosemide 20MG tablet PO SCH (09:44)
[2019-08-03] MEDS: thiamine 100mg tablet PO SCH (09:45)
[2019-08-03] MEDS: rivaroxaban 20mg tablet PO SCH (09:45)
[2019-08-03] MEDS: citalopram 20mg tablet PO SCH (09:46)
[2019-08-03] MEDS: amiodarone 200mg tablet PO SCH (09:47)
[2019-08-03] MEDS: nicotine 21mg patch - 24 hr TD SCH (09:47)
[2019-08-03] MEDS: docusate sod 100mg capsule PO SCH (09:47)
[2019-08-03 11:00] VITALS: BP 98/79
[2019-08-03] MEDS ORDERED: COR3.125T PO (11:24)
--- NOTE | 2019-08-03 14:30 | NUR ---
RN provided patient teaching on Afib, ETOH and drug rehab, all questions answered. Pt understood that he has to make it his first priority to find a PCP. Pt has difficulty comprehending, teaching took more than 45 min. Pt requested taxi service from the hospital to take him where he resides (renting a room in a house). Pt attempted to call his landlord Luke, but Luke's phone was turned off. Pt left unit with medications and personal belongings at 1430 in wheelchair, picked up by taxi.
[2019-08-04] MEDS ORDERED: multivitamins, therapeutics tablet PO SCH (08:00)
== END 2019-08-03 14:42 | disposition home or self-care (01) | DRG 281 ==
LOC: ER 14:41 → ED HOLD 17:18 → MED 3N 19:00
PROVIDERS: ADMIT Family Medicine; ATTEND Internal Medicine
PROC: 4B02XSZ Measurement of Cardiac Pacemaker, External Approach (ICD-10-PCS; principal; 2019-07-28)
PROC: 3E02340 Introduction of Influenza Vaccine into Muscle, Percutaneous Approach (ICD-10-PCS; 2019-07-28)
PROC: 3E0234Z Introduction of Serum, Toxoid and Vaccine into Muscle, Percutaneous Approach (ICD-10-PCS; 2019-07-29)
DX: I48.91 Unspecified atrial fibrillation (principal); I21.A1 Myocardial infarction type 2; I50.22 Chronic systolic (congestive) heart failure; J44.9 Chronic obstructive pulmonary disease, unspecified; I25.10 Atherosclerotic heart disease of native coronary artery without angina pectoris; K74.60 Unspecified cirrhosis of liver; F17.210 Nicotine dependence, cigarettes, uncomplicated; F10.20 Alcohol dependence, uncomplicated; I11.0 Hypertensive heart disease with heart failure; Z95.5 Presence of coronary angioplasty implant and graft; Z91.19 Patient's noncompliance with other medical treatment and regimen; Z79.899 Other long term (current) drug therapy; Z88.0 Allergy status to penicillin; Z23 Encounter for immunization
CPT/HCPCS: 36415; 71045; 80053; 80061; 80162; 80305; 80320; 82150; 82948; 83690; 83735; 83880; 84100; 84439; 84443; 84484; 85025; 85610; 87081; 90732; 93005; 93306; 94640; 94667; 94668; 94760; 96374; 96376; 97116; 97161; 97530; 99285; G0378; J3411; J3490; J7060; Q2037

== ENCOUNTER 2020-07-04 09:48 | Observation (INO) | payer MEDICARE, MEDICAID ==
[2020-07-03 11:27] LABS: ALBUMIN 3.4 G/DL (3.4-5.0); ANION GAP 7 (8-16); BLOOD UREA NITROGEN 11 MG/DL (7-18); BUN/CREATININE RATIO 11.3 (5.4-32.0); CALCIUM 9.4 MG/DL (8.5-10.1); CHLORIDE 104 MMOL/L (99-107); CREATININE 0.97 MG/DL (0.60-1.10); GLUCOSE 103 MG/DL (70-104); POTASSIUM 4.1 MMOL/L (3.5-5.1); SODIUM 142 MMOL/L (135-145); TOTAL CARBON DIOXIDE 30.7 MMOL/L (24-32); eGFR 78 ML/MIN
[2020-07-03 11:52] LABS: BASOPHILS # (AUTO) 0.1 X10'3 (0-0.2); BASOPHILS % (AUTO) 1.2 % (0-1); EOSINOPHILS # (AUTO) 0.3 X10'3 (0-0.9); EOSINOPHILS % (AUTO) 2.7 % (0-6); HEMATOCRIT 47.5 % (42.0-52.0); HEMOGLOBIN 15.6 g/dl (14.0-17.9); LYMPHOCYTES # (AUTO) 1.7 X10'3 (1.1-4.8); LYMPHOCYTES % (AUTO) 13.8 % (21-51); MEAN CORPUSCULAR HEMOGLOBIN 33.7 PG (27.0-31.0); MEAN CORPUSCULAR HGB CONC 32.8 g/dL (33.0-36.5); MEAN CORPUSCULAR VOLUME 102.6 FL (78-98); MEAN PLATELET VOLUME 10.3 FL (7.4-10.4); MONOCYTES # (AUTO) 1.1 X10'3 (0-0.9); MONOCYTES % (AUTO) 8.9 % (2-12); NEUTROPHILS # (AUTO) 8.8 X10'3 (1.8-7.7); NEUTROPHILS % (AUTO) 73.4 % (42-75); PLATELET COUNT 241 X10'3 (140-440); RED BLOOD COUNT 4.63 X10'6 (4.70-6.10); RED CELL DISTRIBUTION WIDTH 13.6 % (11.5-14.5); WHITE BLOOD COUNT 12.1 X10'3 (4.5-11.0)
[~2020-07-04] VITALS: Ht 182.9 cm; Wt 107.9 kg
[2020-07-04] VITALS (18 sets, daily range): BP systolic 105–169; BP diastolic 65–102
[~2020-07-04 09:48] MED LIST changes: +ALBU18HF2 INH; +AMIO100T4 PO; -AMIO200T27 PO; -APIX5TAB3 PO; -ATOR10TA PO; +ATOR20TA66 PO; -BECL7.3A INH; -CARV-50 PO; +CITA20TA27 PO; +COR3.125T PO; -CYCL-1 PO; -DIGO125T97 PO; +FLUT100D PO; +FOLI0.8T PO; -FURO-150 PO; +FURO20TA4 PO; +LAN0.125T PO; +LISI-604 PO; -LISI2.5T2 PO; -MAGN200T PO; -POTA10TA36 PO; +RIVA20TA PO
[2020-07-04] MEDS ORDERED: LORazepam 0.5 MG tablet PO ONE (10:30)
[2020-07-04] MEDS ORDERED: BUDE10.2 INH (10:30)
[2020-07-04] MEDS ORDERED: MIDAZolam 1mg/ml 10ml vial IV ONE (10:30)
[2020-07-04] MEDS ORDERED: morphine 10mg/ml inj. IV ONE (10:30)
[2020-07-04] MEDS ORDERED: amiodarone 150mg/dext, iso-os 100 ML IV ONE (10:30)
[2020-07-04] MEDS ORDERED: atropine 0.1mg/ml 10ml syringe IV ONE (10:30)
[2020-07-04] MEDS ORDERED: diphenhydrAMINE 25mg capsule PO ONE (10:30)
[2020-07-04] MEDS ORDERED: normal saline 1000ml 1,000 ML IV SCH (10:30)
[2020-07-04] MEDS ORDERED: pneumococcal 23-VAL P-sac vacc 25 mcg/0.5ml vial IMVAC ONE (11:35)
[2020-07-04] MEDS ORDERED: FLU VACC QS2020-21(6MOS UP)/PF 60 MCG/0.5 ML SYRINGE IMVAC ONE (11:35)
[2020-07-04] MEDS ORDERED: albuterol 2.5 MG/3 ML nebule NEB PRN (18:30)
--- NOTE | 2020-07-04 18:45 | NUR ---
Per cardiac short stay RN, normal saline was for cardioversion only and should not be continued on the floor.
--- NOTE | 2020-07-04 19:05 | NUR ---
Orders for ekg and labs in am per dr. garcia. Transferred patient up to room 3018b, in stable condition, Christine LOZADA took over care. Chart taken to christine LOZADA. Patient admit orders placed per dr. garcia TOV orders verified, heart healthy diet, orders for tele monitor. Problems reprioritized. Patient report given, questions answered & plan of care reviewed with Christine LOZADA.
[2020-07-04] MEDS ORDERED: atorvastatin 20mg tablet PO SCH (21:00)
[2020-07-04] MEDS: carvedilol 6.25mg tablet PO SCH (21:14)
[2020-07-05 02:13] VITALS: BP 121/63
[2020-07-05 06:00] VITALS: BP 136/67
[2020-07-05 06:54] LABS: ALANINE AMINOTRANSFERASE 22 U/L (12-78); ALBUMIN 2.8 G/DL (3.4-5.0); ALBUMIN/GLOBULIN RATIO 0.8 (1.1-1.5); ALKALINE PHOSPHATASE 70 IU/L (46-116); ANION GAP 5 (8-16); ASPARTATE AMINO TRANSFERASE 14 U/L (10-37); BILIRUBIN,TOTAL 0.3 MG/DL (0.1-1.0); BLOOD UREA NITROGEN 16 MG/DL (7-18); BUN/CREATININE RATIO 18.2 (5.4-32.0); CALCIUM 8.9 MG/DL (8.5-10.1); CHLORIDE 107 MMOL/L (99-107); CREATININE 0.88 MG/DL (0.60-1.10); GLUCOSE 106 MG/DL (70-104); POTASSIUM 4.5 MMOL/L (3.5-5.1); SODIUM 144 MMOL/L (135-145); TOTAL CARBON DIOXIDE 31.6 MMOL/L (24-32); TOTAL PROTEIN 6.1 G/DL (6.4-8.2); eGFR 87 ML/MIN
[2020-07-05] MEDS ORDERED: digoxin 125mcg (0.125mg) tablet PO SCH (08:00)
[2020-07-05] MEDS ORDERED: citalopram 20mg tablet PO SCH (08:00)
[2020-07-05] MEDS ORDERED: furosemide 20MG tablet PO SCH (08:00)
[2020-07-05] MEDS ORDERED: lisinopril 2.5mg tablet PO SCH (08:00)
[2020-07-05] MEDS ORDERED: rivaroxaban 20mg tablet PO SCH (08:00)
[2020-07-05] MEDS ORDERED: budesonide 0.5mg/2ml UD nebule IH SCH (08:00)
[2020-07-05] MEDS ORDERED: amiodarone 100mg tablet PO SCH (08:00)
[2020-07-05] MEDS: carvedilol 6.25mg tablet PO SCH (08:37)
[2020-07-05 11:00] VITALS: BP 146/74
--- NOTE | 2020-07-05 15:09 | NUR ---
discharged at 1315. PC picked up. Edcuated on follow-up and Beta blockers and when to hold them. PIV taken out. Safe per Dr Arredondo for DC.
== END 2020-07-05 13:30 | disposition home or self-care (01) ==
LOC: SSTAY O 09:48 → PCU 3S 18:42
PROVIDERS: ADMIT Internal Medicine Cardiovascular Disease; ATTEND Internal Medicine Cardiovascular Disease
DX: I48.0 Paroxysmal atrial fibrillation (principal); I42.9 Cardiomyopathy, unspecified; J44.9 Chronic obstructive pulmonary disease, unspecified; E78.5 Hyperlipidemia, unspecified; F10.20 Alcohol dependence, uncomplicated; F17.200 Nicotine dependence, unspecified, uncomplicated; Z71.6 Tobacco abuse counseling; Z95.810 Presence of automatic (implantable) cardiac defibrillator; Z91.19 Patient's noncompliance with other medical treatment and regimen; Z23 Encounter for immunization
CPT/HCPCS: 36415; 80048; 80053; 85025; 87081; 90732; 92960; 93005; 94640; 94760; 94799; 96374; 96375; G0008; G0009; G0378; J0461; J2250; J2270; Q0163; Q2039; J7626

== ENCOUNTER 2021-06-24 11:22 | Outpatient (CLI) | payer MEDICARE, MEDICAID ==
[~2021-06-24 11:22] MED LIST changes: +BUDE10.2 INH; +CARV-50 PO; -COR3.125T PO; -FLUT100D PO; -FOLI0.8T PO; -LAN0.125T PO; -LISI-604 PO; +LISI-642 PO
== END 2021-06-24 23:59 | disposition home or self-care (01) ==
LOC: CARD DIAG 11:22
DX: I34.0 Nonrheumatic mitral (valve) insufficiency (principal); I50.22 Chronic systolic (congestive) heart failure
CPT/HCPCS: 93306

== ENCOUNTER 2022-01-07 13:44 | Inpatient (IN) | payer MEDICARE, MEDICAID ==
[~2022-01-07] VITALS: Ht 182.9 cm; Wt 100.0 kg
[2022-01-07] MEDS ORDERED: diltiazem 5mg/ml 5ml inj. IV ONE ×2 (13:55→18:55)
[2022-01-07] MEDS ORDERED: magnesium 2GM in 50ml NS 50 ML IV ONE (13:55)
[2022-01-07] MEDS ORDERED: magnesium oxide 400mg tablet PO ONE (13:55)
[2022-01-07 14:20] LABS: BASOPHILS # (AUTO) 0.1 X10'3 (0-0.2); BASOPHILS % (AUTO) 0.8 % (0-1); EOSINOPHILS # (AUTO) 0.4 X10'3 (0-0.9); EOSINOPHILS % (AUTO) 2.6 % (0-6); HEMATOCRIT 53.5 % (42.0-52.0); HEMOGLOBIN 17.4 g/dl (14.0-17.9); LYMPHOCYTES # (AUTO) 3.1 X10'3 (1.1-4.8); LYMPHOCYTES % (AUTO) 20.9 % (21-51); MEAN CORPUSCULAR HEMOGLOBIN 29.4 PG (27.0-31.0); MEAN CORPUSCULAR HGB CONC 32.5 g/dL (33.0-36.5); MEAN CORPUSCULAR VOLUME 90.3 FL (78-98); MEAN PLATELET VOLUME 10.6 FL (7.4-10.4); MONOCYTES # (AUTO) 0.8 X10'3 (0-0.9); MONOCYTES % (AUTO) 5.5 % (2-12); NEUTROPHILS # (AUTO) 10.3 X10'3 (1.8-7.7); NEUTROPHILS % (AUTO) 70.2 % (42-75); PLATELET COUNT 190 X10'3 (140-440); RED BLOOD COUNT 5.93 X10'6 (4.70-6.10); RED CELL DISTRIBUTION WIDTH 15.4 % (11.5-14.5); WHITE BLOOD COUNT 14.7 X10'3 (4.5-11.0)
[2022-01-07 14:30] LABS: ALANINE AMINOTRANSFERASE 15 U/L (12-78); ALBUMIN 3.9 G/DL (3.4-5.0); ALKALINE PHOSPHATASE 78 IU/L (46-116); ANION GAP 10 (8-16); ASPARTATE AMINO TRANSFERASE 13 U/L (10-37); BILIRUBIN,TOTAL 0.5 MG/DL (0.1-1.0); BLOOD UREA NITROGEN 27 MG/DL (7-18); BUN/CREATININE RATIO 22.5 (5.4-32.0); CALCIUM 9.2 MG/DL (8.5-10.1); CHLORIDE 102 MMOL/L (99-107); GLUCOSE 132 MG/DL (70-104); POTASSIUM 3.9 MMOL/L (3.5-5.1); SODIUM 138 MMOL/L (135-145); TOTAL CARBON DIOXIDE 26.2 MMOL/L (24-32); TOTAL PROTEIN 7.9 G/DL (6.4-8.2); eGFR 61 ML/MIN
[2022-01-07 14:38] LABS: MAGNESIUM 2.2 MG/DL (1.5-2.4)
--- NOTE | 2022-01-07 15:21 | NUR ---
[facility] [employer] [employer] [facility]PER[facility] TO INTERROGATE PM AT BEDSIDE. HOSPITAL DEVICE IS NOT CHARGED AND WILL TAKE VARIOUS HOURS TO CHARGE. PER [employer] VESSEL OPERATOR ETA 30 MIN.
--- NOTE | 2022-01-07 15:57 | NUR ---
[facility] AT BEDSIDE STATES DEVICE NOT FOUND, SPOKE WITH MADHURI FROM [facility] AND TOLD DEVICE WAS IMPLANTED BY DR JUNE ON 12/31/19, PER REP SHE STATES THAT IT WOULD BE AN ABBOT DEVICE.
--- NOTE | 2022-01-07 16:35 | NUR ---
Call to who stated patient not on file. Call to [employer] who will send floor representative and call back with ETA.
[2022-01-07 17:24] LABS: CLARITY,URINE CLEAR (Clear); COLOR,URINE YELLOW (Yellow); GLUCOSE, URINE >=1000 mg/dl (Neg); KETONES,URINE NEGATIVE (Neg); LEUKOCYTE ESTERASE ,URINE NEGATIVE (Neg); NITRITES, URINE NEGATIVE (Neg); OCCULT BLOOD,URINE NEGATIVE (Neg); PH,URINE 5.5 (4.8-8.0); PROTEIN,URINE NEGATIVE (Neg); UROBILINOGEN,URINE 0.2 E.U/dL (0.2-1.0)
[2022-01-07 17:28] LABS: UA COLLECTION TYPE VOIDED
--- NOTE | 2022-01-07 17:33 | NUR ---
RELIEVING RN FOR BREAK, STORMY HALL, TECH WITH [facility] [employer], , WORKS IN [place], UNABLE TO COME AND INTERROGATE PACEMAKER, UNABLE TO DO REMOTE EVALUATION TODAY, POSSIBLY CAN TOMORROW. DR MATTHEW AWARE
[2022-01-07] MEDS ORDERED: potassium CL 10mEq/100ml bag 100 ML IV PRN (18:10)
[2022-01-07] MEDS ORDERED: acetaminophen 325mg tablet PO PRN ×2 (18:10)
[2022-01-07] MEDS ORDERED: magnesium 4gm in 100ml NS 100 ML IV PRN (18:10)
[2022-01-07] MEDS ORDERED: POTASSIUM BICARB 20meq eff tab 20 MEQ TABLET.EFF PO PRN ×2 (18:10)
[2022-01-07] MEDS ORDERED: magnesium 2GM in 50ml NS 50 ML IV PRN (18:10)
[2022-01-07] MEDS ORDERED: ondansetron/PF 4mg/2ml inj IV PRN (18:10)
[2022-01-07] MEDS ORDERED: morphine 2 MG/ML inj. syringe IV PRN (18:10)
[2022-01-07] MEDS ORDERED: HYDROcodone/acetaminophen 5mg/325mg tablet PO PRN (18:10)
[2022-01-07] MEDS ORDERED: magnesium Cl slow-release 64mg tablet PO PRN (18:10)
[2022-01-07 18:46] LABS: BACTERIA,URINE FEW /HPF (Neg); RBC,URINE 0-2 /HPF (0-2); SQUAMOUS EPITHELIAL CELL,UR FEW /LPF (FEW); WBC,URINE 0-4 /HPF (0-4)
[2022-01-07] MEDS: heparin, porcine 5000 units/ml vial SQ SCH (18:51)
[2022-01-07] MEDS: K and/or MAG REPLACEMENT MC SCH (18:51)
[2022-01-07] MEDS: normal saline 1000ml 1,000 ML IV SCH (19:05)
[2022-01-07 19:17] LABS: HEMOGLOBIN A1C 5.9 % (4.5-6.2)
[2022-01-07 19:18] LABS: URINE AMPHETAMINE SCREEN NEGATIVE (Neg); URINE BARBITUATE SCREEN NEGATIVE (Neg); URINE BENZODIAZEPINES SCREEN NEGATIVE (Neg); URINE CANNABINOID SCREEN NEGATIVE (Neg); URINE COCAINE SCREEN NEGATIVE (Neg); URINE METHADONE SCREEN NEGATIVE (Neg); URINE OPIATE SCREEN NEGATIVE (Neg); URINE PHENCYCLIDINE SCREEN NEGATIVE (Neg)
[2022-01-07] MEDS ORDERED: DIGO-21 PO (19:37)
[2022-01-07] MEDS ORDERED: [UNRECOGNIZED DRUG - CODE] PO (19:37)
[2022-01-07] MEDS ORDERED: IBUP-1985 PO (19:37)
[2022-01-07] MEDS ORDERED: DAPA10TA PO (19:37)
[2022-01-07] MEDS ORDERED: AMLO5TAB PO (19:37)
[2022-01-07] MEDS ORDERED: CARV25TA2 PO (19:37)
[2022-01-07] MEDS ORDERED: LISI40TA13 PO (19:37)
[2022-01-07] MEDS ORDERED: LEVO25TA7 PO (19:37)
[2022-01-07] MEDS: carVEDilol 12.5mg tablet PO SCH (19:38)
--- NOTE | 2022-01-07 20:16 | NUR ---
report to Jay LOZADA,
[2022-01-07] MEDS ORDERED: temazepam 15mg capsule PO PRN (21:00)
[2022-01-07 22:00] VITALS: BP 109/87
[2022-01-08 02:00] VITALS: BP 99/57
[2022-01-08] MEDS: normal saline 1000ml 1,000 ML IV SCH (04:26)
[2022-01-08 06:08] LABS: EOSINOPHILS # (AUTO) 0.4 X10'3 (0-0.9); HEMOGLOBIN 16.7 g/dl (14.0-17.9); MONOCYTES # (AUTO) 1.2 X10'3 (0-0.9); RED CELL DISTRIBUTION WIDTH 15.3 % (11.5-14.5)
[2022-01-08 06:09] LABS: BASOPHILS # (AUTO) 0.2 X10'3 (0-0.2); BASOPHILS % (AUTO) 1.5 % (0-1); EOSINOPHILS % (AUTO) 2.8 % (0-6); HEMATOCRIT 50.7 % (42.0-52.0); LYMPHOCYTES % (AUTO) 23.5 % (21-51); MEAN CORPUSCULAR HEMOGLOBIN 30.1 PG (27.0-31.0); MEAN CORPUSCULAR VOLUME 91.4 FL (78-98); MEAN PLATELET VOLUME 10.6 FL (7.4-10.4); MONOCYTES % (AUTO) 9.3 % (2-12); NEUTROPHILS # (AUTO) 8.1 X10'3 (1.8-7.7); NEUTROPHILS % (AUTO) 62.9 % (42-75); PLATELET COUNT 182 X10'3 (140-440); RED BLOOD COUNT 5.55 X10'6 (4.70-6.10)
[2022-01-08 06:17] LABS: ALANINE AMINOTRANSFERASE 14 U/L (12-78); ALBUMIN 3.4 G/DL (3.4-5.0); ALKALINE PHOSPHATASE 77 IU/L (46-116); ANION GAP 5 (8-16); ASPARTATE AMINO TRANSFERASE 13 U/L (10-37); BILIRUBIN,TOTAL 0.4 MG/DL (0.1-1.0); BLOOD UREA NITROGEN 26 MG/DL (7-18); BUN/CREATININE RATIO 22.4 (5.4-32.0); CALCIUM 8.6 MG/DL (8.5-10.1); CHLORIDE 107 MMOL/L (99-107); CREATININE 1.16 MG/DL (0.60-1.10); GLUCOSE 102 MG/DL (70-104); POTASSIUM 4.3 MMOL/L (3.5-5.1); SODIUM 142 MMOL/L (135-145); TOTAL PROTEIN 6.9 G/DL (6.4-8.2); eGFR 63 ML/MIN
[2022-01-08 07:00] VITALS: BP 118/70
[2022-01-08] MEDS: carVEDilol 12.5mg tablet PO SCH (07:47)
[2022-01-08] MEDS: heparin, porcine 5000 units/ml vial SQ SCH (07:48)
[2022-01-08] MEDS: K and/or MAG REPLACEMENT MC SCH ×2 (08:15→19:26)
[2022-01-08 11:00] VITALS: BP 115/74
[2022-01-08] MEDS: spironolactone 25 MG tablet PO SCH (11:32)
[2022-01-08] MEDS ORDERED: carVEDilol 12.5mg tablet PO ONE ×2 (12:05→20:00)
[2022-01-08] MEDS ORDERED: ACETAMINOPHEN PO SCH (13:00)
[2022-01-08 15:00] VITALS: BP 112/74
[2022-01-08 18:00] VITALS: BP 122/79
--- NOTE | 2022-01-08 18:18 | NUR ---
Patient in room PCU 3018. I have received report from GABRIELA LOZADA and had the opportunity to ask questions and assume patient care.
[2022-01-08] MEDS ORDERED: atorvastatin 20mg tablet PO SCH (21:00)
[2022-01-08 22:08] VITALS: BP 121/77
[2022-01-09 02:34] VITALS: BP 138/77
[2022-01-09 06:00] VITALS: BP 106/81
[2022-01-09 06:27] LABS: BASOPHILS # (AUTO) 0.1 X10'3 (0-0.2); EOSINOPHILS # (AUTO) 0.4 X10'3 (0-0.9); MEAN CORPUSCULAR HGB CONC 32.9 g/dL (33.0-36.5)
--- NOTE | 2022-01-09 06:29 | NUR ---
Problems reprioritized. Patient report given, questions answered & plan of care reviewed with MARIA T LOZADA.
[2022-01-09 06:30] LABS: BASOPHILS % (AUTO) 1.2 % (0-1); EOSINOPHILS % (AUTO) 3.4 % (0-6); HEMATOCRIT 53.1 % (42.0-52.0); HEMOGLOBIN 17.5 g/dl (14.0-17.9); LYMPHOCYTES % (AUTO) 24.9 % (21-51); MEAN CORPUSCULAR HEMOGLOBIN 30.4 PG (27.0-31.0); MEAN CORPUSCULAR VOLUME 92.2 FL (78-98); MEAN PLATELET VOLUME 10.1 FL (7.4-10.4); MONOCYTES % (AUTO) 8.5 % (2-12); NEUTROPHILS # (AUTO) 7.5 X10'3 (1.8-7.7); PLATELET COUNT 174 X10'3 (140-440); RED BLOOD COUNT 5.75 X10'6 (4.70-6.10); WHITE BLOOD COUNT 12.2 X10'3 (4.5-11.0)
--- NOTE | 2022-01-09 06:35 | NUR ---
Patient in room PCU 3018. I have received report from NEVILLE Smith and had the opportunity to ask questions and assume patient care.
[2022-01-09 06:46] LABS: ANION GAP 6 (8-16); BLOOD UREA NITROGEN 20 MG/DL (7-18); BUN/CREATININE RATIO 18.5 (5.4-32.0); CHLORIDE 105 MMOL/L (99-107); CREATININE 1.08 MG/DL (0.60-1.10); GLUCOSE 99 MG/DL (70-104); POTASSIUM 4.4 MMOL/L (3.5-5.1); SODIUM 141 MMOL/L (135-145); TOTAL CARBON DIOXIDE 30.5 MMOL/L (24-32)
[2022-01-09 06:47] LABS: ALANINE AMINOTRANSFERASE 14 U/L (12-78); ALBUMIN 3.4 G/DL (3.4-5.0); ALBUMIN/GLOBULIN RATIO 0.9 (1.1-1.5); ALKALINE PHOSPHATASE 68 IU/L (46-116); ASPARTATE AMINO TRANSFERASE 14 U/L (10-37); BILIRUBIN,TOTAL 0.5 MG/DL (0.1-1.0); TOTAL PROTEIN 7.1 G/DL (6.4-8.2); eGFR 68 ML/MIN
[2022-01-09] MEDS: albuterol 2.5 MG/3 ML nebule NEB SCH ×2 (07:18→15:36)
[2022-01-09] MEDS ORDERED: carVEDilol 12.5mg tablet PO SCH (07:30)
[2022-01-09] MEDS ORDERED: budesonide 0.5mg/2ml UD nebule IH SCH (08:00)
[2022-01-09] MEDS ORDERED: DAPAGLIFLOZIN 10MG TABLET PO SCH (08:00)
[2022-01-09] MEDS ORDERED: levoTHYROXINE 25mcg tablet PO SCH ×2 (08:00)
[2022-01-09] MEDS: K and/or MAG REPLACEMENT MC SCH (08:00)
[2022-01-09] MEDS ORDERED: digoxin 250mcg (0.25mg) tablet PO SCH (08:00)
[2022-01-09] MEDS ORDERED: lisinopril 10 MG tablet PO SCH (08:00)
[2022-01-09 08:36] LABS: LARGE PLATELETS FEW; PLATELET ESTIMATE NORMAL
[2022-01-09] MEDS: spironolactone 25 MG tablet PO SCH (08:46)
[2022-01-09 11:00] VITALS: BP 115/70
[2022-01-09 15:00] VITALS: BP 110/78
[2022-01-09] MEDS ORDERED: SPIR25TA PO (15:40)
[2022-01-09] MEDS ORDERED: SACU1TAB PO (15:40)
[2022-01-09] MEDS ORDERED: CARV-50 PO (15:40)
[2022-01-09] MEDS ORDERED: LEVO25TA7 PO (15:44)
--- NOTE | 2022-01-09 17:29 | NUR ---
Pt discharged to home, with all belongings, in taxicab. Discharge instructions and medications reviewed. New prescriptions sent to [facility] on [address] Pt instructed to follow up with Dr Arredondo and PCP in 1-2 weeks, and to return to ED if symptoms return. Pt states understanding and willingness to comply with all discharge instructions. IV DC'd, cannula intact. Pt escorted to front lobby via wheelchair by PCT.
[2022-01-09] MEDS ORDERED: rivaroxaban 20mg tablet PO SCH (18:00)
[2022-01-11] MEDS ORDERED: sacubitril/valsartan 24mg-26mg tablet PO SCH (08:00)
--- NOTE | 2022-01-17 12:35 | NUR ---
Case Management DC follow up:Spoke with Patient via telephone. S/P: Patient Reports: Acute/continuous chest pain, emergent SOB, resp distress , orthopnea,dyspnea,N/V, weakness,vertigo,headache,blurry vision, s/s of stroke,activity /shock s from AICD,fever, signs of infection.Verbalizes understanding of s/s that warrant 9-11/ER visit for further evaluation. Verbalizes understanding of new Rx: why prescribed; continues/resumes current Rx as ordered.Verbalizes he has a lady that helps with medication schedule .Patient verbalized understanding need to make appointment with Dr. Arredondo.; however, has not made appointment; agreed to assistance offered. Verbalizes staff were fine.Needs met,questions/concerns addressed at DC:No further questions/concerns regarding recent stay at hospital and/or DC status at this time.
== END 2022-01-09 17:06 | disposition home or self-care (01) | DRG 291 ==
LOC: ER 13:44 → ED HOLD 18:23 → PCU 3S 20:43
PROVIDERS: ADMIT Internal Medicine; ATTEND Internal Medicine
PROC: 4B02XTZ Measurement of Cardiac Defibrillator, External Approach (ICD-10-PCS; principal; 2022-01-07)
DX: I13.0 Hypertensive heart and chronic kidney disease with heart failure and stage 1 through stage 4 chronic kidney disease, or unspecified chronic kidney disease (principal); I50.23 Acute on chronic systolic (congestive) heart failure; I48.20 Chronic atrial fibrillation, unspecified; N17.9 Acute kidney failure, unspecified; I42.0 Dilated cardiomyopathy; J44.9 Chronic obstructive pulmonary disease, unspecified; D72.829 Elevated white blood cell count, unspecified; F17.210 Nicotine dependence, cigarettes, uncomplicated; G89.29 Other chronic pain; E66.9 Obesity, unspecified; M54.9 Dorsalgia, unspecified; Z60.2 Problems related to living alone; R94.6 Abnormal results of thyroid function studies; R73.09 Other abnormal glucose; I25.10 Atherosclerotic heart disease of native coronary artery without angina pectoris; I45.10 Unspecified right bundle-branch block; K74.60 Unspecified cirrhosis of liver; M17.0 Bilateral primary osteoarthritis of knee; N18.30 Chronic kidney disease, stage 3 unspecified; I25.2 Old myocardial infarction; Z95.5 Presence of coronary angioplasty implant and graft; Z95.810 Presence of automatic (implantable) cardiac defibrillator; Z68.29 Body mass index [BMI] 29.0-29.9, adult; Z71.6 Tobacco abuse counseling; Z79.899 Other long term (current) drug therapy; Z84.89 Family history of other specified conditions
CPT/HCPCS: 36415; 71045; 80053; 80162; 80305; 81001; 83036; 83735; 83880; 84443; 84484; 85008; 85025; 87081; 93005; 93306; 94640; 94760; 97116; 97161; 97530; 99285; G0378; J1644; J3475; J3490; J7030

== ENCOUNTER 2022-11-18 09:21 | Outpatient (CLI) | payer MEDICARE, MEDICAID ==
[~2022-11-18 09:21] MED LIST changes: -AMIO100T4 PO; -CITA20TA27 PO; +DAPA10TA PO; +DIGO-21 PO; +LEVO25TA7 PO; -LISI-642 PO; +SACU1TAB PO; +SPIR25TA PO; +[UNRECOGNIZED DRUG - CODE] PO
== END 2022-11-18 23:59 | disposition home or self-care (01) ==
LOC: CARD DIAG 09:21
PROVIDERS: ATTEND Internal Medicine Cardiovascular Disease
DX: I34.0 Nonrheumatic mitral (valve) insufficiency (principal); I50.22 Chronic systolic (congestive) heart failure
CPT/HCPCS: 93306